=== PATIENT | female | born 1970 | race Caucasian/White ===

== ENCOUNTER → 2020-12-11 | Outpatient (CLI) | payer OTHER ==
--- NOTE | 2020-12-11 11:27 | Diagnostic Imaging Report ---
PROCEDURE: US Thyroid. TECHNIQUE: Multiple real-time grayscale images were obtained of the thyroid in various projections. INDICATION: Hypothyroidism. There are no prior studies available for comparison. FINDINGS: The thyroid gland is enlarged. The right lobe measures 6.4 x 3.1 x 2.3 cm while the left lobe is estimated to be 5.8 x 2.4 x 2.0 cm (normal gland size 4-5 x 2 x 2 cm or less). There is no discrete solid or cystic mass within either lobe, but each lobe has somewhat of a heterogeneous texture. IMPRESSION: 1. The thyroid gland is enlarged. There is no discrete solid or cystic mass within either lobe, however. 2. If further evaluation of the thyroid function is desired, then a nuclear medicine thyroid scan with uptake would be recommended. Dictated by: Dictated on workstation # [id number]
--- NOTE | 2020-12-12 11:28 | Diagnostic Imaging Report ---
INDICATION: Hyperthyroidism. TECHNIQUE: The patient was administered 202 uCi of I-123 orally and 4 hour and 24 hour thyroid uptake was performed. In addition, a thyroid scan was performed. FINDINGS: The 4 hour uptake is 68%. The 24-hour uptake is 96%. Normal values for a 24 hour uptake is approximately 10-30%. The thyroid scan shows homogeneous uptake of activity throughout both lobes of the thyroid. No definite hot or cold nodules are identified. IMPRESSION: Significantly elevated thyroid uptake, consistent with hyperthyroidism. No hot or cold nodules are identified. Dictated by: Dictated on workstation # [id number]
== END ==
LOC: RAD 10:30
PROVIDERS: ATTEND Nurse Practitioner Family
DX: E05.90 Thyrotoxicosis, unspecified without thyrotoxic crisis or storm (principal)
CPT/HCPCS: 76536; 78014; A9516